=== PATIENT | male | born 1985 | race Caucasian/White ===

== ENCOUNTER 2018-02-10 06:06 | Day surgery (SDC) | payer OTHER, SELFPAY ==
[2018-02-09 14:49] VITALS: BMI 29.1
[2018-02-10] VITALS (7 sets, daily range): BP systolic 105–118; BP diastolic 65–78; PULSE 80–93; RESP 15–22; TEMP 36.3–36.6; O2SAT 94–100; BMI 29.1
[2018-02-10] MEDS: LACTATED RINGERS 1,000 ML 42 ML IV ×2 (06:57→10:37)
--- NOTE | 2018-02-10 07:38 | PM.PREOP ---
Pre-operative Note Interval Note Pre-op Check: Yes History & Physical Reviewed by Physician and Yes Exam Performed Changes: No
[2018-02-10] MEDS: CLINDAMYCIN 900 MG/50 ML PIGGYBACK 50 MG IV (08:00)
--- NOTE | 2018-02-10 08:01 | SUR.PREOP ---
Block start time [0744] . Monitoring initiated and maintained throughout procedure. Oxygen and medications given per anesthesiologist instructions. Patient remained stable throughout procedure, no adverse reactions noted. Block end time [0754].
--- NOTE | 2018-02-10 09:03 | PM.PROC.1 ---
Procedures Date/Time Date of procedure: 02/10/18 Time of procedure: 07:45 General Procedure description: Ultrasound guided interscalene brachial plexus nerve block for post op pain control after Right shoulder arthroscopic surgery by Dr. Galeas. Risk and benefits of procedure discussed with patient. ASA monitoring applied to patient. O2 given via nasal cannula. 2 mg Versed and 50 mcg fentanyl given for procedural sedation. Skin site was prepped with chlorhexidine and allowed to fully dry. Sterile gloves, mask, hat and probe cover were used to maintain sterility. 2% lidocaine and 30ga needle was used to make a small skin wheal at needle insertion site. Under ultrasound guidance, a 21ga 50mm Pajunk needle was directed into the interscalene groove (middle/anterior scalenes) near the brachial plexus. Patient reported no parasthesias. After negative aspiration, 20 mL 0.5% ropivicaine and 10mg dexamethasone were injected around brachial plexus. Patient tolerated procedure well.
--- NOTE | 2018-02-10 09:09 | SUR.OPER ---
Lateral on padded OR bed with mitchell bag positioner, head on pillow, gel axillary roll in place, bottom leg bent with gel pad under knee to foot, upper leg straight and supported with pillows. Operative arm secured in shoulder positioning suspension device. non-operative arm secured on padded arm board. Safety belt at hip, tape over blanket securing lower legs.
[2018-02-10] MEDS: BUPIVACAINE 0.25% (PF) VIAL 30 ML INJ (10:56)
--- NOTE | 2018-02-10 11:42 | SUR.PHASEI ---
pt awake tolerating juice and crackers, denies any pain or discomfort in right arm or shoulder.
--- NOTE | 2018-02-10 13:51 | PM.OP.1 ---
Operative Date/Time/Diagnoses Date of procedure: 02/10/18 Time of procedure: 08:00 Pre-op diagnosis: Right shoulder labral tear Right shoulder biceps tendinitis Right shoulder acromioclavicular joint arthritis Post-op diagnosis: same Procedure & Clinicians Procedure: Right shoulder arthroscopic labral repair Right shoulder open biceps tenodesis Right distal clavicle excision Same procedure as scheduled: Yes Indications: This is a 32-year-old male who is right-hand dominant right shoulder fact it. He is at 15 years of insidious onset right shoulder pain. He described deep central pain within the shoulder superior pain as well as anterior pain. MRI and exam were consistent with a posterior labral tear. He received 95% pain relief from a biceps tendon sheath injection and significant relief from an AC joint injection. He failed a course of physical therapy. He continued to have activity limiting pain. The risks, benefits, alternatives to surgery were discussed. The risks include pain, bleeding, infection, damage to nearby structures, lack of symptom relief, need for further procedures, implant complications, and anesthetic complications. He signed a written consent. Surgeon: Uche Galeas Director Religious Education: Wilber Cerda Click Yes if Unassisted: No Anesthesia Type: General and Local Operative Notes Findings: Examination under anesthesia. Full range of motion. Grade 2 posterior instability on load and shift. Contralateral had grade 1 posterior load shift. There was no instability in any other plane. Diagnostic arthroscopy: Subscapularis tendon intact biceps tendon intact no slap tear. Glenoid cartilage intact. humeral head cartilage intact. No loose bodies were seen in the subscapularis recess. Rotator cuff was intact. No hagl lesion. There is a posterior labral tear from 630-830. Anterior and inferior labrum were otherwise intact. Closure Type: primary Specimen(s): none sent Implants & Drains: Arthrex knotless suture tack x2 Arthrex fiber tack x1 Estimated Blood Loss (mL): 10 Blood products transfused: none Procedure in detail: The patient was met in the preoperative hold area the day of the procedure. Operative extremity was signed. Consent was verified. He desired to proceed. Regional anesthesia was obtained. He was brought to the operating room and surrendered to anesthesia. Once general anesthesia been obtained he was placed in the supine position utilizing a beanbag. An axillary roll was placed. All bony prominences were well padded. He was then prepped and draped in the standard sterile fashion. A surgical time-out was held to confirm the patient procedure, and any, allergies, images, antibiotics. All were in agreement we proceeded. He was placed into balanced suspension and a standard diagnostic arthroscopy was performed utilizing a posterior portal and anterosuperior portal. Findings of the diagnostic arthroscopy can be found above. I then used a straight biter to take the biceps tendon at its its junction with the labrum. And the the stump was then debrided to a smooth base. I then used an elevator to exploit and extend the posterior labral tear freeing it from the underlying glenoid from 11/05 in till 830. I then used a pineapple rasp and the same interval and abraded the glenoid surface until there was a bed of bleeding bone. I placed a sucker shaver the same interval to remove any unstable tissue. The labrum was freely mobile. I then used a percutaneous kit to place a 7 o'clock portal and placed my 1st suture tack at the 7:00 position. I used a 45 degree suture Lasso to left and passed the suture obtaining a large bite to include labrum and capsule. I then secured the labrum and capsule using knotless technique. I probed the repair prior to cutting the suture. I then placed a 2nd anchor at the 8 o'clock position and performed another excellent capsulorrhaphy and tightened the sutures well. I then probed my repair and found to be very stable. Sutures were cut and final images were obtained. The humeral head was centered on the glenoid once traction had been removed. All instruments were then removed from the joint. I then proceeded with the open biceps tenodesis. I made a 4 cm incision in line with Mi's lines near the axilla centered over the Bedoya major tendon. Scissor dissection was brought down to the fascia and it was split in line. I then used my finger to dissect into the interval just under the Bedoya major tendon. The pect major was retracted with a [place] and identified the long head of the biceps tendon within the groove. A right angle was used to isolate it and pull it out of the wound. The tendon was found to have a longitudinal tear within it and to be tendinotic. I then used a Graves elevator to abrade the synovial tissue within the bicipital groove until I was down to a bed of bleeding bone. The fiber tack was then placed and sat nicely. I then measured 2 cm from the musculotendinous junction and passed 1 limb of the suture from that location down to the muscle and then back up. I then took the other limb in both single throw through the tendon. I then cut the excess tendon. I then pulled on the single throw limb and reduced the tendon down to the groove. It was located centrally within the groove and I was satisfied with this position. I then tied 7 reverse half hitches alternating post found this to fix it nicely. The tension was excellent. As I began to irrigate the wound I noted that a nervous structure was evident within the wound that was in continuity without any injury. Finished irrigating the wound and moved onto the distal clavicle excision. I palpated the AC joint and made a 5 cm longitudinal incision centered at this location. Electrocautery was used to obtain hemostasis. Identified the fascial layer and cleared full-thickness skin flaps. I then made a longitudinal cut in the fascia and joint capsule and released it from the underlying bone. A rongeur was used to remove the articular disc. I then remeasured 1 cm from the acromial surface and made a amari on the distal clavicle. I resected at that line parallel to the acromial surface. I then placed my finger into the wound and brought his arm completely across them and found that the anterior surfaces were able to touch. I then resected Harvinder 2 mm sliver of bone and found this resection to be adequate. I then irrigated the wound copiously and closed the capsule with 0 Vicryl. The deep tissues were closed with 2 O Vicryl in the dermis was closed with 2 O Vicryl. Running Monocryl was placed in the skin. The portal sites were closed with buried Monocryl and the biceps tenodesis was closed in a similar fashion to the distal clavicle excision. 10 cc of 0.25% Marcaine plain were placed around the biceps incision and a sterile dressing was applied, he was placed into a sling, awakened, and transferred to the recovery room. Complications: none Condition: stable Disposition: same day surgery Plan for aftercare: 0-2 weeks: Pendulum exercises 2-6 weeks: Passive range of motion. 120? forward flexion. 90? AB duction. Limited external rotation. Do not internally rotate when forward flex greater than 90?. No active flexion of the elbow. 6-12 weeks: Full active and passive range of motion. No strengthening. Gradual increase in biceps used per the protocol. Twelve weeks and be on: Gradually increase strengthening and introduce dynamic activities.
== END 2018-02-10 12:21 | disposition home or self-care (01) ==
PROVIDERS: Visit Provider Orthopaedic Surgery
PROC: (CPT 29805; principal; 2018-02-10 07:45)
PROC: (CPT 23120; 2018-02-10 07:45)
DX: M25.311 Other instability, right shoulder (principal); M75.21 Bicipital tendinitis, right shoulder; M19.011 Primary osteoarthritis, right shoulder; G89.18 Other acute postprocedural pain; F17.210 Nicotine dependence, cigarettes, uncomplicated
CPT/HCPCS: 23430; 29806; 23120; 64450; J1100; J1885; J2250; J2405; J2704; J2795; J3010